=== PATIENT | male | born 1975 | race Caucasian/White ===

== ENCOUNTER 2022-10-22 07:34 | Outpatient (CLI) | payer OTHER, SELFPAY | END 2022-10-22 07:35 | disposition home or self-care (01) | LOC: NFLDREF 10-23 00:57 | PROVIDERS: PCP Physician Assistant Medical; Referring Provider Physician Assistant Medical; Visit Provider Physician Assistant Medical | DX: E87.5 Hyperkalemia (principal); Z13.6 Encounter for screening for cardiovascular disorders | CPT/HCPCS: 80053; 80061 ==

== ENCOUNTER 2022-10-22 23:44 | Emergency (ER) | payer OTHER, SELFPAY ==
[2022-10-22 23:53] VITALS: BP 158/113; PULSE 83; RESP 16; TEMP 36.6; O2SAT 100; BMI 28.7
--- NOTE | 2022-10-23 00:03 | ED_ITS ---
HPI - General Adult General Chief complaint: Unspecified Complaint, Adult Stated complaint: potassium levels high Time Seen by Provider: 10/22/22 23:46 History of Present Illness HPI narrative: Patient is a 47-year-old gentleman who was at home watching movies tonight when he received a call that his potassium was 7.8. He feels fine he has no major complaints or concerns. The blood draw was for the the follow-up of his fluoxetine dosing. He has had no difficulties with hyperkalemia in the past. He has no other findings on his laboratory studies. He has had no chest pain shortness a breath orthopnea no PND no nausea no vomiting his EKG shows normal sinus rhythm without peaked T waves. Overall he feels fine but did come in at the on-call providers recommendation. Initial review of vital signs are normal. Related Data Previous Rx's Medication Instructions Recorded fluoxetine 60 mg tablet 60 mg PO QDAY #30 tabs 06/30/22 Allergies Allergy/AdvReac Type Severity Reaction Status Date / Time ethinyl estradiol Allergy Mild runny nose Verified 10/21/22 08:49 [From [facility] (91)] levonorgestrel Allergy Mild runny nose Verified 10/21/22 08:49 [From [facility] (91)] Review of Systems Status of ROS: Reports: 10 or more systems reviewed and unremarkable except as noted in History and below PFSH PFS Surgical History History of vasectomy ?Z98.52 - Vasectomy status (ICD-10) History of tonsillectomy (03/03/12) ?Z90.89 - Acquired absence of other organs (ICD-10) Family History Aunt Brain aneurysm Mother Brain tumor Social History Narrative: , 2 children, Non-smoker Smoking Status: Never smoker How often do you have a drink containing alcohol: 2-3 times a week AUDIT-C Alcohol total score: 3 Non-prescribed substance use: denies use Exam Narrative: Exam Narrative: EXAM GENERAL: Patient appears comfortable and well. EYES: No scleral icterus. LYMPH: No supraclavicular or cervical lymphadenopathy. SKIN: Visible skin seen during exam normal or with benign process only. EXT: No dependent lower extremity pedal edema. HEART: Regular rate and rhythm with no murmurs, rubs, or gallops. LUNGS: Clear to auscultation bilaterally with no crackles or wheezes. ABD: Soft, non tender, non distended. PSYCH: Good eye contact, speech is not pressured. Const: Vital Signs, click to edit/add: Vital Signs - 24 hr 10/22/22 23:53 Temperature 97.8 F Pulse Rate [Right Pulse Oximeter] 83 Respiratory Rate 16 Blood Pressure [Ri ght Upper Arm] 158/113 H Pulse Oximetry 100 Oxygen Delivery Me thod Room Air Course Course Hospital Course: Patient seen examined EKG reviewed. Repeat basic metabolic panel ordered. Vital Signs Vital signs: Initial Vital Signs Temperature 97.8 F 10/22/22 23:53 Temperature Source Temporal Artery Scan 10/22/22 23:53 Pulse Rate 83 10/22/22 23:53 Pulse Rhythm Regular 10/22/22 23:53 Respiratory Rate 16 10/22/22 23:53 Blood Pressure 158/113 H 10/22/22 23:53 Blood Pressure Mean 128 H 10/22/22 23:53 Blood Pressure Position Sitting 10/22/22 23:53 Pulse Oximetry 100 10/22/22 23:53 Oxygen Delivery Method Room Air 10/22/22 23:53 Vital Signs Temperature 97.8 F 10/22/22 23:53 Pulse Rate 83 10/22/22 23:53 Respiratory Rate 16 10/22/22 23:53 Blood Pressure 158/113 H 10/22/22 23:53 Pulse Oximetry 100 10/22/22 23:53 Oxygen Delivery Method Room Air 10/22/22 23:53 Temperature 97.8 F 10/22/22 23:53 Pulse Rate 83 10/22/22 23:53 Respiratory Rate 16 10/22/22 23:53 Blood Pressure 158/113 H 10/22/22 23:53 Pulse Oximetry 100 10/22/22 23:53 Oxygen Delivery Method Room Air 10/22/22 23:53 Medical Decision Making MDM Narrative Medical decision making narrative: Patient is a 47-year-old healthy gentleman comes in today after having blood work done earlier showing potassium 7.8. His EKG was normal repeat potassium is 3.6 patient is asymptomatic. Continue his current medications plan to have follow-up with his regular doctor and report any change in his symptoms. Differential Diagnosis Differential Diagnosis: Lab error, hyperkalemia Lab Data Labs: Lab Results 10/22/22 10/23/22 Range/Units 00:10 00:10 Sodium Cancelled 136 Potassium Cancelled 3.6 Chloride Cancelled 104 Carbon Dioxide Cancelled 19 L BUN Cancelled 8 Creatinine Cancelled 0.7 Estimated Creat Clear Cancelled 136.15 Estimated GFR Cancelled 115 Glucose Cancelled 96 Calcium Cancelled 9.0 Total Bilirubin Cancelled AST Cancelled ALT Cancelled Alkaline Phosphatase Cancelled Total Protein Cancelled Albumin Cancelled Discharge Plan Discharge Clinical Impression: Hyperkalemia Patient Disposition: Home, Self-Care Condition: Stable Additional Instructions: Continue current medication Follow-up with your doctor next week. Activity Level: No Restrictions Discharge Diet: Regular Prescriptions: No Action fluoxetine 60 mg tablet 60 mg PO QDAY Qty: 30 0RF Follow Up/Referrals: Herman Rizo PA-C [Primary Care Provider] - Stand Alone Forms: [facility] Info Instructions
[2022-10-23 00:57] LABS: Blood Urea Nitrogen* 8 mg/dL (5-24); Carbon Dioxide* 19 mmol/L (20-32); Chloride* 104 mmol/L (96-114); Creatinine* 0.7 mg/dL (0.5-1.5); Est. Creatinine Clearance* 136.15; Estimated Glomerular Filt Rate 115 ml/min; Glucose* 96 mg/dL (60-115); Potassium* 3.6 mmol/L (3.6-5.1); Sodium* 136 mmol/L (135-149)
[2022-10-29 20:22] LABS: Vitamin B12* 178 pg/mL (243-894)
== END 2022-10-23 01:06 | disposition home or self-care (01) ==
PROVIDERS: Emergency Provider Internal Medicine; PCP Physician Assistant Medical
DX: E87.5 Hyperkalemia (principal)
CPT/HCPCS: 36415; 80048; 80053; 82607; 93005; 99283

== ENCOUNTER 2022-11-26 12:50 | Outpatient (CLI) | payer OTHER, SELFPAY | END 2022-11-26 12:51 | disposition home or self-care (01) | LOC: RAD 12:50 | PROVIDERS: PCP Physician Assistant Medical; Visit Provider Physician Assistant Medical | DX: R00.2 Palpitations (principal); R06.02 Shortness of breath | CPT/HCPCS: 93306 ==

== ENCOUNTER 2023-01-07 07:55 | Outpatient (CLI) | payer OTHER, SELFPAY ==
--- NOTE | 2023-01-07 08:51 | W.ANESCHARGE ---
Anesthesia Charges Start Date/Time Anesthesia Start Date: 01/07/23 Anesthesia Start Time: 08:32 Stop Date/Time Anesthesia Stop Date: 01/07/23 Anesthesia Stop Time: 08:47
== END 2023-01-07 07:56 | disposition home or self-care (01) ==
LOC: OP CLINIC 07:56
PROVIDERS: PCP Physician Assistant Medical; Visit Provider Internal Medicine
DX: R13.10 Dysphagia, unspecified (principal); K29.70 Gastritis, unspecified, without bleeding
CPT/HCPCS: 00731; 43239; 88305; J2704; J3490

== ENCOUNTER 2023-11-25 11:06 | Outpatient (CLI) | payer OTHER, SELFPAY ==
--- NOTE | 2023-11-25 11:15 | CRLHL7_ITS ---
For Patients: As a result of the Cures Act, medical imaging exams and procedure reports are released immediately into your electronic medical record. You may view this report before your referring provider. If you have questions, please contact your health care provider. Examination: US abdominal aorta Indication: Abdominal aortic aneurysm screening. Technique: Ga scale and color Doppler images of the aorta and common iliac arteries are obtained. Comparison: None Findings: Proximal aorta: 2.2 x 2.1 cm Mid aorta: 1.8 x 2.3 cm Distal aorta: 1.4 x 1.7 cm Right common iliac artery: 1.0 x 1.1 cm Left common iliac artery: 1.0 x 1.2 cm Impression: No abdominal aortic aneurysm. Dictated by Eric Zapata MD @ 11/25/2023 12:22:22 PM (Electronically Signed)
== END 2023-11-25 11:07 | disposition home or self-care (01) ==
LOC: US 11:06
PROVIDERS: PCP Physician Assistant Medical; Visit Provider Physician Assistant Medical
DX: Z13.6 Encounter for screening for cardiovascular disorders (principal)
CPT/HCPCS: 76706

== ENCOUNTER 2024-01-24 09:00 | Outpatient (CLI) | payer OTHER, SELFPAY | END 2024-01-24 09:01 | disposition home or self-care (01) | LOC: NFLDREF 01-26 13:38 | PROVIDERS: PCP Physician Assistant Medical; Referring Provider Physician Assistant Medical; Visit Provider Physician Assistant Medical | DX: R79.89 Other specified abnormal findings of blood chemistry (principal); E53.8 Deficiency of other specified B group vitamins; K20.0 Eosinophilic esophagitis; Z13.220 Encounter for screening for lipoid disorders | CPT/HCPCS: 80053; 80061; 82306; 82607; 84443 ==

== ENCOUNTER 2024-11-06 09:24 | Outpatient (CLI) | payer OTHER, SELFPAY ==
--- NOTE | 2024-11-06 10:48 | P.ANES_ITS ---
Anesthesia Charges Start Date/Time Anesthesia Start Date: 11/06/24 Anesthesia Start Time: 10:00 Stop Date/Time Anesthesia Stop Date: 11/06/24 Anesthesia Stop Time: 10:47 Coding CPT Codes CPT Codes: MAURICE LWR INTST NDSC NOS - [id number] ([id number]) P2 - PATIENT W/MILD SYST DISEASE, QK - WELL LOGGING CAPTAIN MUD ANALYSIS 2-4 CNCRNT ANES PROC, QX - SPRING TACKER SVC W/ MD MED DIRECTION
--- NOTE | 2024-11-06 10:48 | W.ANESCHARGE ---
Anesthesia Charges Start Date/Time Anesthesia Start Date: 11/06/24 Anesthesia Start Time: 10:00 Stop Date/Time Anesthesia Stop Date: 11/06/24 Anesthesia Stop Time: 10:47 Coding CPT Codes CPT Codes: MAURICE LWR INTST NDSC NOS - [id number] ([id number]) P2 - PATIENT W/MILD SYST DISEASE, QK - TRANSFORMATION SPECIALIST 2-4 CNCRNT ANES PROC, QX - STAMPING DIE TRY OUT WORKER SVC W/ MD MED DIRECTION
--- NOTE | 2024-11-06 10:56 | P.ANES_ITS ---
Anesthesia Charges Start Date/Time Anesthesia Start Date: 11/06/24 Anesthesia Start Time: 10:00 Stop Date/Time Anesthesia Stop Date: 11/06/24 Anesthesia Stop Time: 10:47 Coding CPT Codes CPT Codes: ANES LWR INTST NDSC NOS - [id number] ([id number]) QX - METAL WELDER SVC W/ MD MED DIRECTION, QK - THERMOMETER MAKER 2-4 CNCRNT ANES PROC, P2 - PATIENT W/MILD SYST DISEASE
--- NOTE | 2024-11-06 10:56 | W.ANESCHARGE ---
Anesthesia Charges Start Date/Time Anesthesia Start Date: 11/06/24 Anesthesia Start Time: 10:00 Stop Date/Time Anesthesia Stop Date: 11/06/24 Anesthesia Stop Time: 10:47 Coding CPT Codes CPT Codes: ANES LWR INTST NDSC NOS - [id number] ([id number]) QX - SENIOR SHAREPOINT DEVELOPER SVC W/ MD MED DIRECTION, QK - INVENTORY TECHNICIAN 2-4 CNCRNT ANES PROC, P2 - PATIENT W/MILD SYST DISEASE
== END 2024-11-06 09:25 | disposition home or self-care (01) ==
LOC: OP CLINIC 09:25
PROVIDERS: PCP Physician Assistant Medical; Visit Provider Surgery
DX: Z12.11 Encounter for screening for malignant neoplasm of colon (principal); Z83.719 Family history of colon polyps, unspecified; D12.0 Benign neoplasm of cecum; D12.2 Benign neoplasm of ascending colon; D12.3 Benign neoplasm of transverse colon
CPT/HCPCS: 00811; 00812; 45385; 88305; J2704

== ENCOUNTER 2025-01-18 09:55 | Outpatient (CLI) | payer OTHER, SELFPAY | END 2025-01-18 09:56 | disposition home or self-care (01) | LOC: NFLDREF 01-21 18:27 | PROVIDERS: PCP Physician Assistant Medical; Referring Provider Physician Assistant Medical; Visit Provider Physician Assistant Medical | DX: Z00.00 Encounter for general adult medical examination without abnormal findings (principal); E53.8 Deficiency of other specified B group vitamins; R79.89 Other specified abnormal findings of blood chemistry | CPT/HCPCS: 80053; 80061; 82306; 82607; 84443 ==